=== PATIENT | male | born 1985 | race Asian ===

== ENCOUNTER 2018-09-12 07:54 | Day surgery (SDC) | payer BC ==
[2018-09-12 08:37] LABS: POTASSIUM 4.4 mmol/L (3.6-5.2)
[2018-09-12 08:38] LABS: PLATELET COUNT 192 K/uL (142-355)
== END 2018-09-12 12:35 | disposition home or self-care (01) ==
LOC: OR 07:54
PROVIDERS: Student in an Organized Health Care Education/Training Program
PROC: 0JB70ZZ Excision of Back Subcutaneous Tissue and Fascia, Open Approach (ICD-10-PCS; principal; 2018-09-12)
PROC: 0JQ70ZZ Repair Back Subcutaneous Tissue and Fascia, Open Approach (ICD-10-PCS; 2018-09-12)
DX: D17.1 Benign lipomatous neoplasm of skin and subcutaneous tissue of trunk (principal)
CPT/HCPCS: 80053; 85027; C1729; J0690; J1100; J1170; J1885; J2001; J2250; J2405; J2704; J3010; J3490